=== PATIENT | female | born 1955 | race African-American/Black ===

== ENCOUNTER 2018-01-20 23:30 | Emergency (ER) | payer MEDICAID ==
[2018-01-20] MEDS ORDERED: LEVETIRACETAM 1500 MG/NACL-ISO 1,500 MG/100 ML RTUPB IV SCH (23:45)
--- NOTE | 2018-01-20 23:47 | ER Document Report ---
ED General - General Chief Complaint: S/S of Possible Stroke Stated Complaint: STROKE LIKE SYMPTOMS Time Seen by Provider: 01/20/18 23:45 Notes: Patient is a 62-year-old female with a past medical history of peripheral arterial disease status post bilateral BKA's, hypertension, insulin-dependent type 2 diabetes who presents for concern of a period of aphasia and right-sided facial abnormalities. EMS reports that they were called out to a [place] for concerned the patient may be having a stroke. When they arrived the patient however was asymptomatic, denied any ongoing symptoms. She was subsequent transported to the emergency department. At time of arrival patient denies any complaints. She states that she is uncertain what happened earlier but she feels "fine" now. She states earlier she felt like her right face was twitching and she could not control the movement. She also states that she could not talk. Nothing seemed to improve or worsen the symptoms and it was present and it did resolve spontaneously. She is uncertain whether or not she has had similar symptoms in the past. She denies any weakness, numbness, headache, difficulty speaking or understanding language currently. Past Medical History - General Information source: Patient, Relative - Social History Smoking Status: Never Smoker Frequency of alcohol use: None Drug Abuse: None Lives with: Family Family History: Reviewed & Not Pertinent Review of Systems - Review of Systems Notes: Constitutional: Negative for fever. HENT: Negative for sore throat. Eyes: Negative for visual changes. Cardiovascular: Negative for chest pain. Respiratory: Negative for shortness of breath. Gastrointestinal: Negative for abdominal pain, vomiting or diarrhea. Genitourinary: Negative for dysuria. Musculoskeletal: Negative for back pain. Skin: Negative for rash. Neurological: Negative for headaches, weakness or numbness. Positive for a brief period of a aphasia and right-sided facial abnormality that has since resolved 10 point ROS negative except as marked above and in HPI. Physical Exam - Vital signs Vitals: Temp Resp Pulse Ox 97.4 F 19 99 01/20/18 23:43 01/20/18 23:43 01/20/18 23:43 Interpretation: Normal Notes: PHYSICAL EXAMINATION: GENERAL: Well-appearing, well-nourished and in no acute distress. HEAD: Atraumatic, normocephalic. EYES: Pupils equal round and reactive to light, extraocular movements intact, sclera anicteric, conjunctiva are normal. ENT: nares patent, oropharynx clear without exudates. Moist mucous membranes. NECK: Normal range of motion, supple without lymphadenopathy LUNGS: Breath sounds clear to auscultation bilaterally and equal. No wheezes rales or rhonchi. HEART: Regular rate and rhythm without murmurs ABDOMEN: Soft, nontender, normoactive bowel sounds. No guarding, no rebound. No masses appreciated. EXTREMITIES: Normal range of motion, no pitting or edema. No cyanosis. NEUROLOGICAL: Face symmetric. Tongue protrudes midline. Extraocular motions intact. Pupils are 2 mm and equally reactive. Normal speech, normal gait. 5 out of 5 strength in both the distal and proximal upper and lower extremities bilaterally. Sensation is grossly intact throughout. Finger to nose testing normal. Pronator drift normal. PSYCH: Normal mood, normal affect. SKIN: Warm, Dry, normal turgor, no rashes or lesions noted. Course - Re-evaluation Re-evalutation: 01/20/18 23:46 Patient presents with signs and symptoms most consistent with possible TIA as patient is currently asymptomatic at time of presentation. Per EMS the patient had some dysarthria at time of their evaluation at a restaurant across the street is resolved in route to the hospital. The patient has no focal neurologic deficits on initial examination. A stat CT the head was obtained and is unremarkable. Basic laboratories will be obtained and I will reassess the patient shortly thereafter. 01/20/18 23:51 On reassessment of the patient she is having a partial seizure involving the right face. She is still able to control her bilateral upper extremities and follow commands but is unable to speak. Her son at the bedside reports that she is actually had one similar episode in the past of hypoglycemia and her BGL is noted to be "high" here. He also states that this is exactly what prompted them to contact EMS and the very first place. Given this report, I do not believe the patient had a TIA and said it appears that the patient has now had a second partial seizure tonight. She will receive 2 mg of intravenous lorazepam as well as 1500 mg of Keppra. 01/21/18 00:09 Patient seizure has resolved. She is no longer having any right-sided facial twitching. She did vomit after having a seizure. Awaiting further results. 01/21/18 00:29 Patient has not had any recurrence of her seizure. Her BGL is noted to be markedly elevated at 1183 although no evidence of diabetic ketoacidosis as anion gap is normal. Patient is not in a stuporous state to suggest HHS. Will give 20 units of IV insulin as her potassium is adequately high to allow this therapy at 5.8. Will also begin IV fluids. Troponin normal. Patient remains without any focal neurologic deficits. 01/21/18 01:53 I have discussed this case with Dr. Gomez at [facility] who has accepted the patient for transfer. Will continue to monitor the patient closely. Vitals remain within acceptable limits. She remains without focal neurologic deficits. Will recheck an Accu-Chek. 01/21/18 04:00 Patient continues to rest comfortably. Without focal neurologic deficits on repeat exam. Repeat Accu-Chek at 0200 continued to read high. We will recheck a basic metabolic panel as well as a repeat Accu-Chek. Awaiting transport to [facility] - Vital Signs Vital signs: Temp Pulse Resp BP Pulse Ox 97.4 F 21 H 146/90 H 96 01/20/18 23:43 01/21/18 02:01 01/21/18 02:01 01/21/18 02:01 - Laboratory Result Diagrams: 01/20/18 23:48 01/20/18 23:48 Laboratory results interpreted by me: 01/20/18 01/20/18 01/20/18 23:48 23:48 23:48 MCHC 31.4 L Plt Count 131 L VBG pCO2 VBG HCO3 Sodium 125.1 L Potassium 5.8 H Chloride 83 L Carbon Dioxide 31 H BUN 28 H Creatinine 1.88 H Est GFR ( Amer) 33 L Est GFR (Non-Af Amer) 27 L Glucose 1183 H* Serum Osmolality Calcium 10.3 H Direct Bilirubin 0.5 H AST 55 H Urine Glucose (UA) 01/21/18 01/21/18 01/21/18 00:30 01:19 01:36 MCHC Plt Count VBG pCO2 67.4 H* VBG HCO3 33.2 H Sodium Potassium Chloride Carbon Dioxide BUN Creatinine Est GFR ( Amer) Est GFR (Non-Af Amer) Glucose Serum Osmolality 329 H Calcium Direct Bilirubin AST Urine Glucose (UA) >=500 H - Diagnostic Test Radiology reviewed: Image reviewed, Reports reviewed Radiology results interpreted by me: 01/21/18 00:51 CT head: No acute intracranial bleed or mass Chest x-ray: No acute infiltrate Critical Care Note - Critical Care Note Total time excluding time spent on procedures (mins): 36 Comments: Critical care time spent obtaining history from patient or surrogate, discussions with consultants, development of treatment plan with patient or surrogate, evaluation of patient's response to treatment, examination of patient , ordering and performing treatments and interventions, ordering and review of laboratory studies, re-evaluation of patient's condition, ordering and review of radiographic studies and review of old charts Discharge - Discharge Clinical Impression: Partial seizures, Hyperglycemia, Acute kidney injury Condition: Fair Disposition: [facility]
[2018-01-20] MEDS ORDERED: LORAZEPAM INJ 2 MG/1 ML VIAL ONE (23:52)
[2018-01-20] MEDS ORDERED: LORAZEPAM INJ 2 MG/1 ML VIAL IV ONE (23:52)
[2018-01-20 23:59] LABS: ABSOLUTE BASOPHILS # (AUTO) 0.1 10^3/uL (0.0-0.2); ABSOLUTE EOSINOPHILS # (AUTO) 0.2 10^3/uL (0.0-0.6); ABSOLUTE LYMPHOCYTES (AUTO) 2.6 10^3/uL (0.5-4.7); ABSOLUTE MONOCYTES (AUTO) 0.4 10^3/uL (0.1-1.4); ABSOLUTE NEUT (AUTO) 4.1 10^3/uL (1.7-8.2); BASOPHILS % (AUTO) 1.1 % (0-2); EOSINOPHILS % (AUTO) 2.7 % (0-6); HEMATOCRIT 41.9 % (36.0-47.0); HEMOGLOBIN 13.2 g/dL (12.0-15.5); LYMPHOCYTES % (AUTO) 35.3 % (13-45); MEAN CORPUSCULAR HEMOGLOBIN 29.1 pg (27.0-33.4); MEAN CORPUSCULAR HGB CONC 31.4 g/dL (32.0-36.0); MEAN CORPUSCULAR VOLUME 93 fl (80-97); PLATELET COUNT 131 10^3/uL (150-450); RED BLOOD COUNT 4.53 10^6/uL (3.72-5.28); SEGMENTED NEUTROPHILS % (AUTO) 54.9 % (42-78); TOTAL CELLS COUNTED % (AUTO) 100 %; WHITE BLOOD COUNT 7.5 10^3/uL (4.0-10.5)
[2018-01-21 00:09] LABS: ANION GAP 11 (5-19); BLOOD UREA NITROGEN 28 mg/dL (7-20); CALCIUM 10.3 mg/dL (8.4-10.2); CARBON DIOXIDE 31 mmol/L (22-30); CHLORIDE 83 mmol/L (98-107); POTASSIUM 5.8 mmol/L (3.6-5.0); SODIUM 125.1 mmol/L (137-145)
--- NOTE | 2018-01-21 00:09 | RADIOLOGY REPORT (SQ) ---
EXAM DESCRIPTION: XR CHEST 1 VIEW CLINICAL HISTORY: 62 years Female, STROKE ALERT COMPARISON: 1.3., report only NUMBER OF VIEWS/TECHNIQUE: 1/AP FINDINGS: Adequate lung volume, clear parenchyma, mildly enlarged cardiac silhouette, and intact bony thorax. IMPRESSION: No acute cardiopulmonary findings. Mild chronic cardiac enlargement.
[2018-01-21] MEDS ORDERED: LEVETIRACETAM 500 MG/NACL-ISO 500 MG/100 ML RTUPB IV ONE (00:10)
[2018-01-21] MEDS ORDERED: LEVETIRACETAM 1000 MG/NACL-ISO 1,000 MG/100 ML RTUPB IV ONE (00:11)
--- NOTE | 2018-01-21 00:11 | RADIOLOGY REPORT (SQ) ---
EXAM DESCRIPTION: CT HEAD WITHOUT IV CONTRAST CLINICAL HISTORY: 62 years Female, STROKE ALERT COMPARISON: None. TECHNIQUE: No contrast. Coronal and sagittal reformat. This exam was performed according to our departmental dose-optimization program, which includes automated exposure control, adjustment of the mA and/or kV according to patient size and/or use of iterative reconstruction technique. FINDINGS: No hemorrhage or infarct. No mass, mass effect, or midline shift. Atherosclerosis. Brain and extra-axial structures appear otherwise intact. IMPRESSION: No acute findings.
[2018-01-21 00:19] LABS: GLUCOSE 1183 mg/dL (75-110)
[2018-01-21] MEDS ORDERED: INSULIN REG, HUMAN 100 UNIT/ML 3 ML VIAL (PYX) IV ONE ×3 (00:26→11:05)
[2018-01-21 00:53] LABS: VENOUS BLOOD BASE EXCESS 4.8 mmol/L; VENOUS BLOOD HCO3 33.2 mmol/L (20-32); VENOUS BLOOD PH 7.31 (7.30-7.42)
[2018-01-21 00:57] LABS: VENOUS BLOOD PCO2 67.4 mmHg (35-63)
[2018-01-21 01:17] LABS: ALANINE AMINOTRANSFERASE 26 U/L (9-52); ALBUMIN 4.4 g/dL (3.5-5.0); ALKALINE PHOSPHATASE 107 U/L (38-126); ASPARTATE AMINO TRANSFERASE 55 U/L (14-36); BILIRUBIN,DIRECT 0.5 mg/dL (0.0-0.4); BILIRUBIN,TOTAL 0.7 mg/dL (0.2-1.3); TOTAL PROTEIN 7.8 g/dL (6.3-8.2)
[2018-01-21 01:35] LABS: APPEARANCE,URINE SLIGHTLY-CLOUDY; BILIRUBIN,URINE NEGATIVE (NEGATIVE); COLOR,URINE COLORLESS; GLUCOSE, URINE >=500 mg/dL (NEGATIVE); KETONES,URINE NEGATIVE (NEGATIVE); LEUKOCYTE ESTERASE,URINE NEGATIVE (NEGATIVE); NITRITE,URINE NEGATIVE (NEGATIVE); PROTEIN,URINE NEGATIVE (NEGATIVE); URINE SPECIFIC GRAVITY 1.018; UROBILINOGEN,URINE NEGATIVE mg/dL (<2.0)
[2018-01-21] MEDS ORDERED: NORMAL SALINE 1000 ML 1,000 ML IV ONE ×2 (01:42→01:47)
[2018-01-21 06:05] LABS: ANION GAP 12 (5-19); BLOOD UREA NITROGEN 24 mg/dL (7-20); CARBON DIOXIDE 30 mmol/L (22-30); CHLORIDE 94 mmol/L (98-107); POTASSIUM 5.2 mmol/L (3.6-5.0); SODIUM 136.3 mmol/L (137-145)
[2018-01-21 06:14] LABS: GLUCOSE 776 mg/dL (75-110)
[2018-01-21 06:39] VITALS: BP 117/67
--- NOTE | 2018-01-21 08:48 | EKG REPORT ---
SEVERITY:- ABNORMAL ECG - ECTOPIC ATRIAL TACHYCARDIA MULTIPLE VENTRICULAR PREMATURE COMPLEXES RIGHT BUNDLE BRANCH BLOCK : Confirmed by: Jorge Griffin MD 21-Jan-2018 08:48:33
[2018-01-21 15:21] LABS: ALANINE AMINOTRANSFERASE 23 U/L (9-52); ALKALINE PHOSPHATASE 95 U/L (38-126); ANION GAP 13 (5-19); ASPARTATE AMINO TRANSFERASE 22 U/L (14-36); BILIRUBIN,DIRECT 0.4 mg/dL (0.0-0.4); BILIRUBIN,TOTAL 0.5 mg/dL (0.2-1.3); BLOOD UREA NITROGEN 24 mg/dL (7-20); CALCIUM 10.3 mg/dL (8.4-10.2); CARBON DIOXIDE 27 mmol/L (22-30); CHLORIDE 99 mmol/L (98-107); POTASSIUM 4.9 mmol/L (3.6-5.0); SODIUM 138.9 mmol/L (137-145); TOTAL PROTEIN 6.7 g/dL (6.3-8.2)
[2018-01-21 15:28] LABS: GLUCOSE 460 mg/dL (75-110)
== END 2018-01-21 16:27 | disposition left against medical advice (07) ==
LOC: ER 23:30
DX: E11.65 Type 2 diabetes mellitus with hyperglycemia (principal); E11.51 Type 2 diabetes mellitus with diabetic peripheral angiopathy without gangrene; Z79.4 Long term (current) use of insulin; N17.9 Acute kidney failure, unspecified; R56.9 Unspecified convulsions; R11.10 Vomiting, unspecified; Z53.29 Procedure and treatment not carried out because of patient's decision for other reasons; Z89.512 Acquired absence of left leg below knee; Z89.511 Acquired absence of right leg below knee
CPT/HCPCS: 93005; 99285; 96361; 96375; 96365; 36415; 82962; 83930; 85025; 80076; 80048; 80053; 81001; 84484; 82803; 71045; 70450; 93010; J2060; J1815; J7030; J1953 ×2